=== PATIENT | male | born 1995 | race Caucasian/White ===

== ENCOUNTER → 2017-08-09 | Day surgery (SDC) | payer BC ==
[~2017-08-09] VITALS: Ht 175.3 cm; Wt 74.7 kg
[~2017-08-09] MED LIST: AMPH30CA3 PO; ATROPINE SULFATE 0.1 MG/ML 5ML SYR IV PRN; CALC500T83 PO; DiphenhydrAMINE HCL 50 MG/ML VIAL IV STA; EpHEDrine SULFATE INJ 50 MG/ML AMP IV PRN; FENTANYL CITRATE INJ 50 MCG/1 ML 2 ML VIAL ONE; FISH1CAP3 PO; LIDOCAINE HCL 2% 2 ML VIAL (20MG/ML) ONE; LORAZEPAM 2 MG/ML 1 ML VIAL IV STA; MAGN1TAB41 PO; METOCLOPRAMIDE HCL INJ 5 MG/ML 2 ML VIAL IV. STA; MIDAZOLAM HCL 1 MG/ML 2ML VIAL ONE; PHYT100T PO; PROPOFOL IV EMULSION 10 MG/ML 20 ML VIAL IV ONE; SODIUM CHLORIDE 0.9% 1000ML 1,000 ML IV STA; TRAZ100T29 PO
[2017-08-09 16:41] VITALS: Ht 175.3 cm; Wt 74.7 kg
--- NOTE | 2017-08-09 21:10 | Gastrointestinal Consultation ---
Gastrointestinal Consultation Date of Consultation: Aug 09, 2017 Attending Physician: Dr. David Layne Consulting Physician: DR Demetri Wilcox Reason for Consultation: Esophageal foreign body History of Present Illness Patient is a 22 year old male with CC of pills stuck. HPI Pt states no previous dysphagia problems. Ate solid food at 1000 no problem. Took two large magnesium tablets at 1430 and cannot swallow or handle saliva since. Tried to vomit but could not and saw some heme few hours ago. No abd nor chest pain. Hx of diarrhea alternating with constipation. Some GERD managed on prn tums. Takes trazadone and supplements NO previous colo or EGD per patient report. Past Medical/Surgical History depression Family History neg for dysphagia Social History Smoking Status: Current Some Day Smoker Allergies Coded Allergies: Lactose Intolerance (GI) (Verified Adverse Reaction, Intermediate, DIARRHEA, 08/09/17) Uncoded Allergies: SEAFOOD (Adverse Reaction, Intermediate, NAUSEA, 08/09/17) Current Medications Home Meds and Scripts Medications Dose Route/Sig Max Daily Dose Days Date Category Calcium Unknown Strength Tab 1 Tab PO DAILY 08/09/17 Reported Vitamin K (Phytonadione) Unknown Strength Tab 1 Tab PO DAILY 08/09/17 Reported Magnesium (Magnesium Oxide) Unknown Strength Tab 1 Tab PO DAILY 08/09/17 Reported Fish Oil + D3 (Fish Oil-Cholecalciferol) Unknown Strength Cap 1 Cap PO DAILY 08/09/17 Reported Adderall Xr 30MG (Amphetamine-Dextroamphetamine 30MG) 1 Cap Cap 30 Mg PO DAILY PRN 08/09/17 Reported Trazodone (Trazodone HCl) 100 Mg Tab 100 Mg PO HS 08/09/17 Reported Review of Systems see HPI. Otherwise 10 ROS negative Physical Exam Date Time Temp Pulse Resp B/P (MAP) Pulse Ox O2 Delivery O2 Flow Rate FiO2 08/09/17 20:31 92 08/09/17 16:41 36.7 72 18 120/67 95 Room Air General Appearance: WD/WN, no apparent distress Eyes: normal inspection, PERRL ENT: hearing grossly normal, pharynx normal Neck: supple, trachea midline Respiratory/Chest: lungs clear, no respiratory distress Cardiovascular: regular rate, rhythm, no edema, no murmur Abdomen: normal bowel sounds, non tender, soft, no organomegaly, no pulsatile mass Extremities: non-tender, no pedal edema Neurologic/Psych: county demonstrator II-XII nml as tested, alert, normal mood/affect, oriented x 3 Skin: normal color, warm/dry Impression Esophageal foreign body--Discussed EGD with removal and prn dilatation. Proc and risks explained which include but not limited to med reaction, bleeding, perforation, aspiration. Discussed increased risk of bleed, perforaiton, and aspiration with foreign body but only alternative chest surgery really not an alternative.
[2017-08-09 21:11] VITALS: O2SAT 98
--- NOTE | 2017-08-09 21:28 | EMERGENCY ROOM VISIT NOTE ---
History Report prepared by Owen: Tio Kimble Under the Supervision of: Dr. David Layne M.D. First contact with patient: 19:27 Chief Complaint: FOOD BOLUS Stated Complaint: PILL STUCK, CAN'T SWALLOW Nursing Triage Summary: Pt states, "So I was taking some supplements, I think Magnesium, I tried to swallow two without water and they got stuck. I tried to wash them down with some water and the water came back up. I can't swallow my saliva." Denies difficulty breathing. History of Present Illness The patient is a 22 year old male who presents to the Emergency Room with complaints of recurrent choking since 1429 today. He reports taking three supplements today: magnesium, fish oil, and a daily vitamin. He notes the supplements are stuck in his throat. He reports his heart is racing and he has a headache. He regularly takes supplements for working out and to keep his bones healthy. He states that he tried to drink water, though it would not go down. He states difficulty breathing when he tries to drink water. He states trying swallow his saliva, though it wont go down. He reports trying to vomit, though he was unsuccessful. He notes that while spitting out saliva he saw blood about three hours ago. The last time he ate was at 1000 today. He reports dry skin near the right side of his mouth since the start of winter. He has a history of PNA. He reports baseline diarrhea. He states his PCP tried to place him on a FODMAP's diet, though it was not helpful. Pt denies fevers, chills, neck pain, chest pain, nausea, abdominal pain, back pain, urinary symptoms, numbness, weakness, swelling, or rashes. Source of History: patient Onset: 1429 today Position: throat Quality: other (choking) Timing: other (recurrent) Associated Symptoms: + headache, + SOB (difficulty breathing), + diarrhea, No vomiting Note: He notes dry skin. Review of Systems See HPI for pertinent positives and negatives. A total of ten systems were reviewed and were otherwise negative. Past Medical & Surgical Medical Problems: (1) Bronchitis (2) Diarrhea (3) PNA (pneumonia) Family History No pertinent family history Social History Smoking Status: Current Some Day Smoker Alcohol Use: occasionally Marital Status: single Housing Status: lives with roommate Occupation Status: student Current/Historical Medications Scheduled Calcium (Calcium), 1 TAB PO DAILY Fish Oil-Cholecalciferol (Fish Oil + D3), 1 CAP PO DAILY Magnesium Oxide (Magnesium), 1 TAB PO DAILY Phytonadione (Vitamin K), 1 TAB PO DAILY Trazodone Hcl (Trazodone), 100 MG PO HS Scheduled PRN Amphetamine-Dextroamphetamine 30MG (Adderall Xr 30MG), 30 MG PO DAILY PRN for LONG STUDY DAYS Allergies Coded Allergies: Lactose Intolerance (GI) (Verified Adverse Reaction, Intermediate, DIARRHEA, 08/09/17) Uncoded Allergies: SEAFOOD (Adverse Reaction, Intermediate, NAUSEA, 08/09/17) Physical Exam Vital Signs Date Time Temp Pulse Resp B/P (MAP) Pulse Ox O2 Delivery O2 Flow Rate FiO2 08/09/17 21:11 73 20 105/61 98 Room Air 08/09/17 20:31 92 08/09/17 16:41 36.7 72 18 120/67 95 Room Air Physical Exam GENERAL: Awake, alert, uncomfortable-appearing, in no distress. Actively spitting up his saliva. HENT: Normocephalic, atraumatic. Posterior oropharynx shows redness and irritation. EYES: Normal conjunctiva. Sclera non-icteric. NECK: Supple. No nuchal rigidity. FROM. No masses. RESPIRATORY: Clear to auscultation. No wheezes. CARDIAC: Normal rate. Normal rhythm. No murmurs. No rubs. Extremities warm and well perfused. Pulses equal. No JVD. GI: Soft, non-distended. No tenderness to palpation. No rebound or guarding. No masses. RECTAL: Deferred. MUSCULOSKELETAL: Atraumatic. Chest examination reveals no tenderness. The back is symmetrical on inspection without obvious abnormality. There is no CVA tenderness to palpation. No joint edema. LOWER EXTREMITIES: Calves are equal size bilaterally and non-tender. No edema. No discoloration. NEURO: Normal sensorium. No sensory or motor deficits noted. SKIN: No rash or jaundice noted. Medical Decision & Procedures Medications Administered Medications (Trade) Dose Ordered Sig/Maryam Route Start Time Stop Time Status Last Admin Dose Admin Sodium Chloride 1,000 ml @ 999 mls/hr Q1H1M STAT IV 08/09/17 19:37 08/09/17 20:37 DC 2/16/18 20:12 999 MLS/HR Lorazepam (Ativan Inj) 0.5 mg NOW STAT IV 08/09/17 19:37 08/09/17 19:39 DC 08/09/17 20:11 0.5 MG Metoclopramide HCl (Reglan Inj) 10 mg NOW STAT IV. 08/09/17 19:37 08/09/17 19:39 DC 08/09/17 20:12 10 MG Diphenhydramine HCl (Benadryl Inj) 12.5 mg NOW STAT IV 08/09/17 19:37 08/09/17 19:39 DC 08/09/17 20:12 12.5 MG ED Course 1928: The patient was evaluated in room B12B. A complete history and physical exam was performed. 1936: Ordered Benadryl 12.5 mg IV, Reglan 10 mg IV, Ativan 0.5 mg IV, and Sodium Chloride 1,000 ml @ 999 mls/hr IV 1956: I spoke with Dr. Wilcox [facility]. We discussed the patient 's case. The patient will be further evaluated. 2001: I reassessed the patient at this time. I updated the patient. 2022: I reassessed the patient at this time. The patient is unchanged. 2104: The patient has been taken to endoscopy for further treatment. Medical Decision Triage Nursing notes reviewed. The patient's presentation and history were concerning for possible foreign body impaction of the esophagus. Etiologies such as foreign body impaction, pill esophagitis, esophageal rupture , dysphagia, as well as others were entertained. The patient was evaluated. He was tolerating his own saliva. His airway was patent. His lungs were clear. The remainder of his physical examination was unremarkable. He was given a dose of IV normal saline, IV Ativan, IV Reglan and IV Benadryl. On repeat Assessment he was more relaxed but still had the foreign body sensation present. Gastroenterology, Dr. Wilcox was consulted. The case was discussed. He was evaluated in the Emergency Room and it was determined that endoscopy would be necessary. The patient was taken to the OR for endoscopy and further management. Medication Reconcilliation Current Medication List: was personally reviewed by ri Blood Pressure Screening Patient's blood pressure: Normal blood pressure Consults Time Called: 1939 Consulting Physician: Dr. Wilcox [facility] Returned Call: [address] Wilcox, [facility]. We discussed the patient's case. The patient will be further evaluated. Impression Primary Impression: Impacted esophageal foreign body Scribe Attestation The scribe's documentation has been prepared under my direction and personally reviewed by me in its entirety. I confirm that the note above accurately reflects all work, treatment, procedures, and medical decision making performed by me. Departure Information Dispostion Other (further management by gastroenterology.) Referrals No Doctor, Assigned (PCP) Patient Instructions My [facility]
--- NOTE | 2017-08-09 22:35 | [facility] Post Operative Brief Note ---
Immediate Operative Summary Operative Date Aug 09, 2017. Pre-Operative Diagnosis Esophageal foreign body Post-Operative Diagnosis Esophageal foreign body Procedure(s) Performed Esophagogastroduodenoscopy foreign body removal Surgeon Dr. Wilcox Studio Designer Surgeon(s) None Estimated Blood Loss None Findings Consistent with Post-Op Diagnosis Specimens none Anesthesia Type General
--- NOTE | 2017-08-09 22:52 | GI REPORT ---
Procedure Date: 08/09/2017 9:23 PM Procedure: Upper GI endoscopy Indications: Foreign body in the esophagus Medicines: General Anesthesia Complications: No immediate complications. Estimated blood loss: None. Estimated Blood Loss: Estimated blood loss: none. Procedure: Pre-Anesthesia Assessment: - Prior to the procedure, a History and Physical was performed, and patient medications and allergies were reviewed. The patient is competent. The risks and benefits of the procedure and the sedation options and risks were discussed with the patient. All questions were answered and informed consent was obtained. Patient identification and proposed procedure were verified by the physician, the nurse and the anesthesiologist in the procedure room. Mental Status Examination: alert and oriented. Airway Examination: normal oropharyngeal airway and neck mobility. Respiratory Examination: clear to auscultation. CV Examination: normal. Prophylactic Antibiotics: The patient does not require prophylactic antibiotics. Prior Anticoagulants: The patient has taken no previous anticoagulant or antiplatelet agents. After reviewing the risks and benefits, the patient was deemed in satisfactory condition to undergo the procedure. The anesthesia plan was to use general anesthesia. Immediately prior to administration of medications, the patient was re-assessed for adequacy to receive sedatives. The heart rate, respiratory rate, oxygen saturations, blood pressure, adequacy of pulmonary ventilation, and response to care were monitored throughout the procedure. The physical status of the patient was re-assessed after the procedure. After obtaining informed consent, the endoscope was passed under direct vision. Throughout the procedure, the patient's blood pressure, pulse, and oxygen saturations were monitored continuously. The Scope was introduced through the mouth, and advanced to the second part of duodenum. The upper GI endoscopy was performed with moderate difficulty due to presence of foreign body. Successful completion of the procedure was aided by performing the maneuvers documented (below) in this report. The patient tolerated the procedure well. Procedure and risks explained to patient which include but not limited to medication reaction, bleeding, perforation, aspiration , and missed lesions. Judicious gas insufflation was used and gas removal done on the way out. The lumen was always visualized when advancing the scope. Prep was good. Washes and suctioning used as needed to get good visualization of the mucosa. Retroflexion to look at the fundus and cardia of the stomach and GE junction was done. Findings: Two large white pills were found in the proximal esophagus. The alligator forceps was used to break up the 2 wedged pills until fragments small enough for pills to go single file with gentle pressure into the stomach. Estimated blood loss: none. Non-severe esophagitis was found in the upper esophagus where pills were characterized by erythema and edema. No evidence of perforation The Z-line was regular and was found 45 cm from the incisors. The stomach was normal mucosa but dissolved pill obscurred portion of the fundus of the stomach. The examined duodenum was normal. The exam was otherwise without abnormality. Impression: - Two large white pills were found in the esophagus. - Non-severe non-reflux esophagitis. - Z-line regular, 45 cm from the incisors. - Normal stomach. - Normal examined duodenum. - The examination was otherwise normal. - No specimens collected. Recommendation: - Discharge patient to home (ambulatory). - Take pills one at a time with water, making sure pill goes down before next one is taken. Demetri Wilcox M.D. Demetri Wilcox MD 08/09/2017 10:51:35 PM This report has been signed electronically. Note Initiated On: 08/09/2017 9:23 PM I attest to the content of the Intraoperative Record and orders documented therein, exceptions below
--- NOTE | 2017-08-09 23:02 | Progress Note ---
Progress Note Date of Service Aug 09, 2017. Progress Note Pt awake post EGD. No abd or chest complaints. Mother Dale at [phone] called in about patient. Patient oked that I speak with her so told her about procedure.
--- NOTE | 2017-08-09 23:06 | Discharge Instructions ---
Endoscopy Patient Instructions Date / Procedure(s) Performed Aug 09, 2017. EGD (with pills removed from esophagus. ) Allergy Information Coded Allergies: Lactose Intolerance (GI) (Verified Adverse Reaction, Intermediate, DIARRHEA, 08/09/17) Uncoded Allergies: SEAFOOD (Adverse Reaction, Intermediate, NAUSEA, 08/09/17) Discharge Date / Findings Aug 09, 2017. Pills lodged in esophagus were removed. Medication Instructions No new meds Continue same home meds. Provider Instructions Activity Restrictions - No exercising or heavy lifting for 24 hours. - Do not drink alcohol the day of the procedure. - Do not drive a car or operate machinery until the day after the procedure. - Do not make any important decisions or sign important papers in 24 hours after the procedure. Following Day: - Return to full activity which may include returning to work/school. Diet Start your diet with liquids and light foods (jello, soup, juice, toast). Then eat your usual diet if not nauseated. Treatment For Common After Affects For mild abdominal pain, bloating, or excessive gas: - Rest - Eat lightly - Lie on right side Follow-Up Information Follow-up as needed with DR Wilcox at [facility] at [facility] [phone] Anesthesia Information What You Should Know You have had a procedure that required some medicine to reduce anxiety and discomfort. This treatment is called moderate sedation. After receiving the treatment, you may be sleepy, but you will be able to breathe on your own. The effects of the treatment may last for several hours. Follow these instructions along with Activity/Diet recommendations noted above: * Do NOT do anything where dizziness or clumsiness would be dangerous. * Rest quietly at home today, then you can be up and about tomorrow. * Have a responsible person stay with you the rest of today. * You may have had an I.V. today. If so, you may take the dressing off later today. Recommendations Take only one pill at a time and swallow water in between pills. Do not take next pill until previous one has traveled the esophagus. Call your doctor if: * Trouble breathing * Continuous vomiting for more than 24 hours * Temperature above 101 degrees * Severe abdominal pain or chest pain or bloating * Pain not relieved by pain medicine ordered * There is increased drainage or redness from any incision * A large amount of rectal bleeding greater than 2-3 tablespoons. (If you had a polyp/s removed or have hemorrhoids, a small amount of blood - from the rectum is to be expected.) * You have any unanswered questions or concerns. IN THE EVENT OF A SERIOUS EMERGENCY, GO TO THE NEAREST EMERGENCY ROOM Your discharge instructions were prepared by provider Demetri Wilcox. Patient Instructions Signature Page Guillaume Ramirez Patient (or Guardian) Signature/Date: I have read and understand the instructions given to me by my caregivers. Caregiver/RN/Doctor Signature/Date: The above-named patient and/or guardian has received patient instructions on this date. + Original Patient Signature Page (only) stays with chart. Please make copy for patient.
[2017-08-09 23:23] VITALS: BP 99/61; PULSE 59; TEMP 36.6; O2SAT 96
[2017-08-10] VITALS: BP 116/76; PULSE 88; TEMP 36.2; O2SAT 100
== END | disposition home or self-care (01) ==
LOC: C.EDB 16:39 → C.ACU 21:00 → C.EDB 21:26
PROVIDERS: ATTEND Internal Medicine Gastroenterology
DX: T18.198A Other foreign object in esophagus causing other injury, initial encounter (principal); X58.XXXA Exposure to other specified factors, initial encounter; K20.9 Esophagitis, unspecified; E73.9 Lactose intolerance, unspecified; F17.200 Nicotine dependence, unspecified, uncomplicated; Z91.013 Allergy to seafood; Z87.01 Personal history of pneumonia (recurrent)

== ENCOUNTER 2019-06-12 00:02 | Inpatient (IN) ==
[2019-06-12] MEDS ORDERED: ONDANSETRON INJ 2 MG/ML 2 ML VIAL ONE ×2 (00:18→01:05)
[2019-06-12] MEDS ORDERED: LORazepam 2 MG/4 ML VIAL ONE (00:19)
[2019-06-12 00:37] LABS: Basophils # (auto) 0.02 K/uL (0-0.2); Basophils % (auto) 0.2 %; Eosinophils # (auto) 0.31 K/uL (0-0.5); Eosinophils % (auto) 3.1 %; Hematocrit (blood only) 40.9 % (42-52); Hemoglobin 14.6 g/dL (14.0-18.0); Immature Granulocytes # (auto) 0.01 K/uL (0.00-0.02); Immature Granulocytes % (auto) 0.1 %; Lymphocytes # (auto) 4.78 K/uL (1.2-3.4); Lymphocytes % (auto) 48.3 %; Mean Corpuscular Hemoglobin 32.3 pg (25-34); Mean Corpuscular Hgb Conc 35.7 g/dL (32-36); Mean Corpuscular Volume 90.5 fL (80-100); Mean Platelet Volume 10.3 fL (7.4-10.4); Monocytes # (auto) 0.59 K/uL (0.11-0.59); Neutrophils # (auto) 4.19 K/uL (1.4-6.5); Neutrophils % (auto) 42.3 %; Platelet Count 231 K/uL (130-400); RDW Coefficient of Variation 11.9 % (11.5-14.5); RDW Standard Deviation 39.5 fL (36.4-46.3); Red Blood Count 4.52 M/uL (4.7-6.1)
[2019-06-12] MEDS ORDERED: IOVERSOL 100ml IV PRN (00:49)
[2019-06-12 01:10] LABS: Albumin Level 4.6 gm/dl (3.4-5.0); BUN Creatinine Ratio 12.9 (10-20); Calcium 8.4 mg/dl (8.5-10.1); Creatinine Clr Calc Pharmacy 86.2 ml/min; Est GFR (African American) 89.8; Est GFR (Non-African American) 77.5; Potassium 2.7 mmol/L (3.5-5.1)
[2019-06-12 01:20] LABS: Albumin Globulin Ratio 1.3 (0.9-2); Bilirubin,Total 0.6 mg/dl (0.2-1); Globulin 3.5 gm/dl (2.5-4.0); Thyroid Stimulating Hormone 1.51 uIu/ml (0.300-4.500); Total Protein 8.1 gm/dl (6.4-8.2)
[2019-06-12 01:21] LABS: Acetaminophen < 2 ug/ml (10-30); Salicylate < 1.7 mg/dl (2.8-20)
[2019-06-12] MEDS ORDERED: POTASSIUM CHLORIDE 20 MEQ TABCR PO STA (04:00)
[2019-06-12 05:37] LABS: Appearance Urine Clear (Clear); Bilirubin Urine Negative (Negative); Blood Urine Negative (Negative); Color Urine Yellow; Glucose Urine UA Negative (Negative); Ketones Urine Negative (Negative); Leukocyte Esterase Urine Negative (Negative); Nitrite Urine Negative (Negative); Protein Urine Negative (Negative); Specific Gravity Urine 1.014 (1.000-1.030); Urobilinogen Urine Negative (Negative)
[2019-06-12 05:58] LABS: Amphetamines+Metham, Urine Neg (Neg); Barbiturates, Urine Neg (Neg); Benzodiazepine, Urine Neg (Neg); Cocaine, Urine Neg (Neg); MDMA (Ecstacy), Urine Neg (Neg); Methadone, Urine Neg (Neg); Opiate, Urine Neg (Neg); Phencyclidine, Urine Neg (Neg)
--- NOTE | 2019-06-12 07:07 | CT Scan Report ---
CT OF THE CHEST WITH IV CONTRAST CLINICAL HISTORY: Fall. COMPARISON STUDY: No previous studies for comparison. TECHNIQUE: Following IV administration of 92 mL of Optiray-320, helical axial images of the chest we re obtained. Sagittal and coronal reconstructions were viewed as well as maximal intensity projectio ns on an independent 3-D workstation. Automated exposure control was utilized for the study. A dose lowering technique was utilized adhering to the principles of ALARA. CT DOSE: 1819.08 mGy.cm FINDINGS: There is no evidence for traumatic injury to the thoracic aorta. The size the heart is nor mal. There is no pericardial effusion. No thoracic lymphadenopathy is present. No pneumothorax or pul monary contusion is present. There is no pleural effusion. No acute rib or thoracic spine fracture is noted. The abdomen and pelvis will be reported separately. IMPRESSION: No acute traumatic findings within the chest. ACT 112: Negative or not required by law. Electronically signed by: Sonu Solorzano M.D. 06/12/2019 7:06 AM
--- NOTE | 2019-06-12 07:09 | CT Scan Report ---
HEAD CT NONCONTRAST CT DOSE: HISTORY: fall 15 ft TECHNIQUE: Multiaxial CT images of the head were performed without the use of intravenous contrast. A utomated exposure control was utilized for this study. A dose lowering technique was utilized adheri ng to the principles of ALARA. Comparison: None. Findings: Small retention cyst within the right maxillary sinus. The calvarium and skull base are int act. The ventricles and sulci are within normal limits. There is no mass, hematoma, midline shift, or acute infarct. Impression: No acute intracranial abnormality. ACT 112: Negative or not required by law. Electronically signed by: Miki Henson M.D. 06/12/2019 7:07 AM
--- NOTE | 2019-06-12 07:12 | CT Scan Report ---
CT OF THE ABDOMEN AND PELVIS WITH CONTRAST CLINICAL HISTORY: Fall. COMPARISON STUDY: None. TECHNIQUE: Following IV administration of 92 mL of Optiray-320, axial images of the abdomen and pelvi s were obtained from the lung bases to the proximal femurs. Images were reviewed in the axial, sagitt al, and coronal planes. IV contrast was administered without complication. Automated exposure contro l was utilized for the study. A dose lowering technique was utilized adhering to the principles of A DULCE. FINDINGS: No hemoperitoneum or pneumoperitoneum is present. There is no evidence for traumatic injury to the liver, spleen, adrenal glands, kidneys or pancreas. Caliber and wall thickness of small and l arge bowel are normal. There is no free fluid. No lymphadenopathy is present. Major vasculature is pa tent. No acute lumbar spine or pelvic fracture is identified. IMPRESSION: No acute traumatic findings within the abdomen or pelvis. ACT 112: Negative or not required by law. Electronically signed by: Sonu Solorzano M.D. 06/12/2019 7:10 AM
--- NOTE | 2019-06-12 07:18 | CT Scan Report ---
CT SCAN OF THE CERVICAL SPINE CLINICAL HISTORY: Fall. Intoxication. COMPARISON STUDY: No priors. TECHNIQUE: CT scan of the cervical spine is performed from the skull base to the upper thoracic spine . Images are reviewed in the axial, sagittal, and coronal planes. IV contrast was not administered fo r this examination. A dose lowering technique was utilized adhering to the principles of ALARA. FINDINGS: Skeletal structures: The skeletal structures are well mineralized. There is no evidence of fracture o r subluxation involving the cervical spine. Vertebral body height and alignment are maintained. There is straightening of the cervical lordosis. The odontoid process and lateral masses are intact. The a tlantoaxial articulation is preserved. The spinous processes appear intact. Intervertebral discs: The disc spaces are well maintained. Central canal: Widely patent. Soft tissues: The prevertebral and paraspinous soft tissues are within normal limits. Calvarium: The visualized calvarium at the skull base appears intact. Brain parenchyma: Partially visualized brain parenchyma the skull base is within normal limits. Sinuses and mastoids: The visualized paranasal sinuses are clear. The mastoid air cells are well pneu matized. Lung apices: Clear as visualized. IMPRESSION: There is no evidence of fracture or subluxation involving the cervical spine. ACT 112: Negative or not required by law. Electronically signed by: Ry Judd M.D. 06/12/2019 7:17 AM
--- NOTE | 2019-06-12 11:48 | Emergency Department Note ---
ED Visit Note This patient was signed out to me at the change of shift by Dr. Patel pending mental health evaluation. Patient was medically cleared at 8 AM for psychiatric assessment. Upon my assessment the patient was sleeping awaiting for the mental health casework specialist. Patient is felt to warrant inpatient care due to suicidal ideation and multiple statements. Patient continues to endorse thoughts of suicide. He is denying an active plan at this time. Given the significance of the situation last evening and inability to trust a safety plan with this patient, patient has been referred for inpatient care. He is voluntary at this time and was accepted to [facility]. for admission. Please refer to previous documentation for further details of the history, physical and visit. . : Head trauma Qualifiers: Encounter type: initial encounter Qualified Code(s): S09.90XA - Unspecified injury of head, initial encounter Alcohol overdose Qualifiers: Encounter type: initial encounter Injury intent: intentional self-harm Qualified Code(s): T51.92XA - Toxic effect of unspecified alcohol, intentional self-harm, initial encounter
[2019-06-12] MEDS ORDERED: BISMUTH SUBSALICYLATE PER ML OMNICELL CHARGE PO PRN (13:04)
[2019-06-12] MEDS ORDERED: ALUMINUM/MAGNESIUM SUSP 30 ML UDC PO PRN (13:04)
[2019-06-12] MEDS ORDERED: MAGNESIUM HYDROXIDE SUSP 30 ML UDC PO PRN (13:04)
[2019-06-12] MEDS ORDERED: SODIUM CHLORIDE 0.65% NA SOLN 45 ML (OCEAN) PRN (13:04)
[2019-06-12] MEDS ORDERED: ACETAMINOPHEN 325 MG TAB PO PRN (13:04)
[2019-06-12] MEDS ORDERED: PANTOprazole 40 MG TAB PO STA (15:46)
--- NOTE | 2019-06-12 17:36 | Emergency Department Note ---
Entered by Indigo Renee acting as a scribe for Ara Patel DO History of Present Illness General Chief complaint: Mental Health Evaluation Stated complaint: Fall, Mental health Time Seen by Provider: 06/12/19 00:06 Source: patient, EMS and police History of Present Illness Provider complaint: fall and SI Onset (ago): hour(s) less than 1 Location: head Pain Consistency: + constant Exacerbated By: + movement Associated symptoms: + denies other symptoms The patient is a 24 y/o male who presents to the emergency department for evaluation of an episode of a fall followed by suicidal thoughts prior to arrival. The police state that the patient reported he was drinking a lot. They report that the patient broke in to [facility] and there are conflicting stories as to if he jumped off a wall 15 feet or fell into the basement of the [facility] building 15 feet after breaking a window. The patient states that he cannot remember anything and that he wants to . The nurse reports that the patient did throw up but maintained his own airway. The patient states that he drank enough alcohol to . The nurse reports that the patient noted some head and neck pain. The patient states he has tried to harm himself before with heroin but not recently. He reports he uses heroin, DMT, LSD, and that he has had a drug problem for years. He reports that he will OD in his room if discharged from here. The patient states he has been depressed for 4 years. The patient stated that he thought jumping from 15 feet would kill him. The patient denies abdominal pain. Home Medications Home Medications Medication Instructions Recorded Confirmed Type clonazepam 0.5 mg tablet 0.5 mg PO . NEEDED tab 04/20/19 06/12/19 History pantoprazole 40 mg PO BID #60 tab 04/22/19 06/12/19 Rx budesonide 1 mg/2 mL suspension 2 ml INH BID #60 ea 05/11/19 06/12/19 Rx for nebulization Allergies Allergy/AdvReac Type Severity Reaction Status Date / Time banana Allergy Intermediate THROAT Verified 06/12/19 00:34 SWELLS egg Allergy Mild Difficulty Verified 06/12/19 00:34 Swallowing peanut Allergy Mild "Peanut Verified 06/12/19 00:34 mix (cannot remember)" - can eat peanut butter pollen extracts Allergy Mild "Environmental Verified 06/12/19 00:34 allergy": ITCHY WATERY EYES, RUNNY NOSE shellfish derived Allergy Mild RED EYES, Verified 06/12/19 00:34 HOT FLUSH FEELING lactose AdvReac Intermediate DIARRHEA Verified 06/12/19 00:34 Past Med/Surg History Medical History Environmental allergies Eosinophilic esophagitis GERD (gastroesophageal reflux disease) Seasonal allergies Surgical History History of surgery on right wrist FRACTURED Hx of foot surgery REMOVAL OF OLD KATHRYN NAIL PIECE Hx of wisdom tooth extraction Social History Preferred Language: Armenian Communication Ability: Effective 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 and A total of 10 systems reviewed and were otherwise negative Physical Exam Vital Signs Vital Signs - 24 hr 06/12/19 00:10 06/12/19 00:20 06/12/19 00:21 Pulse Rate 104 H 107 H 107 H Pulse Rate [Finger] Pulse Rate from SpO2 Sensor 106 H 106 H Pulse Rhythm [Finger] Pulse Strength [Finger] Respiratory Rate 24 22 18 Respiratory Effort / Characteristics Respiratory Depth Respiratory Pattern Blood Pressure 125/80 143/100 H Blood Pressure [Right Arm] Blood Pressure Mean 95 107 Blood Pressure Mean [Right Arm] Blood Pressure Position [Right Arm] Pulse Oximetry 98 100 99 Oxygen Delivery Method Room Air Sepsis Recent Fever Within 48 Hours No Sepsis New/Unexplained Change in Mental Status No Sepsis Action Taken by Nursing No Action Required 06/12/19 00:42 06/12/19 00:45 06/12/19 00:46 Pulse Rate 84 92 H 94 H Pulse Rate [Finger] Pulse Rate from SpO2 Sensor 84 93 H 95 H Pulse Rhythm [Finger] Pulse Strength [Finger] Respiratory Rate 18 18 18 Respiratory Effort / Characteristics Respiratory Depth Respiratory Pattern Blood Pressure 112/53 L 76/57 L 85/59 L Blood Pressure [Right Arm] Blood Pressure Mean 68 60 79 Blood Pressure Mean [Right Arm] Blood Pressure Position [Right Arm] Pulse Oximetry 94 71 L 100 Oxygen Delivery Method Sepsis Recent Fever Within 48 Hours Sepsis New/Unexplained Change in Mental Status Sepsis Action Taken by Nursing 06/12/19 00:48 06/12/19 01:00 06/12/19 01:15 Pulse Rate 98 H 96 H 99 H Pulse Rate [Finger] Pulse Rate from SpO2 Sensor 98 H 99 H 97 H Pulse Rhythm [Finger] Pulse Strength [Finger] Respiratory Rate 18 19 18 Respiratory Effort / Characteristics Respiratory Depth Respiratory Pattern Blood Pressure 96/68 L 107/58 L 102/56 L Blood Pressure [Right Arm] Blood Pressure Mean 73 71 71 Blood Pressure Mean [Right Arm] Blood Pressure Position [Right Arm] Pulse Oximetry 100 97 94 Oxygen Delivery Method Sepsis Recent Fever Within 48 Hours Sepsis New/Unexplained Change in Mental Status Sepsis Action Taken by Nursing 06/12/19 01:25 06/12/19 01:30 06/12/19 01:31 Pulse Rate 96 H 87 72 Pulse Rate [Finger] Pulse Rate from SpO2 Sensor 97 H 87 77 Pulse Rhythm [Finger] Pulse Strength [Finger] Respiratory Rate 18 18 15 Respiratory Effort / Characteristics Respiratory Depth Respiratory Pattern Blood Pressure 100/57 L 101/53 L Blood Pressure [Right Arm] Blood Pressure Mean 74 67 Blood Pressure Mean [Right Arm] Blood Pressure Position [Right Arm] Pulse Oximetry 99 100 98 Oxygen Delivery Method Sepsis Recent Fever Within 48 Hours Sepsis New/Unexplained Change in Mental Status Sepsis Action Taken by Nursing 06/12/19 01:45 06/12/19 02:00 06/12/19 02:15 Pulse Rate 88 78 83 Pulse Rate [Finger] Pulse Rate from SpO2 Sensor 78 83 Pulse Rhythm [Finger] Pulse Strength [Finger] Respiratory Rate 16 18 16 Respiratory Effort / Characteristics Respiratory Depth Respiratory Pattern Blood Pressure 93/62 L 105/57 L 105/54 L Blood Pressure [Right Arm] Blood Pressure Mean 75 76 69 Blood Pressure Mean [Right Arm] Blood Pressure Position [Right Arm] Pulse Oximetry 98 97 93 Oxygen Delivery Method Sepsis Recent Fever Within 48 Hours Sepsis New/Unexplained Change in Mental Status Sepsis Action Taken by Nursing 06/12/19 02:30 06/12/19 03:32 06/12/19 04:54 Pulse Rate 89 Pulse Rate [Finger] 120 H 109 H Pulse Rate from SpO2 Sensor 92 H Pulse Rhythm [Finger] Regular Regular Pulse Strength [Finger] Normal Normal Respiratory Rate 16 16 21 Respiratory Effort / Characteristics Non-Labored Spontaneous Non-Labored Spontaneous Respiratory Depth Normal Normal Respiratory Pattern Regular Regular Blood Pressure 104/59 L Blood Pressure [Right Arm] 91/56 L 118/73 Blood Pressure Mean 69 Blood Pressure Mean [Right Arm] 67 88 Blood Pressure Position [Right Arm] Lying Lying Pulse Oximetry 99 100 98 Oxygen Delivery Method Room Air Room Air Sepsis Recent Fever Within 48 Hours Sepsis New/Unexplained Change in Mental Status Sepsis Action Taken by Nursing 06/12/19 07:36 06/12/19 11:43 Pulse Rate Pulse Rate [Finger] 88 98 H Pulse Rate from SpO2 Sensor Pulse Rhythm [Finger] Pulse Strength [Finger] Respiratory Rate 16 16 Respiratory Effort / Characteristics Non-Labored Spontaneous Respiratory Depth Normal Respiratory Pattern Blood Pressure Blood Pressure [Right Arm] 115/54 L 103/64 Blood Pressure Mean Blood Pressure Mean [Right Arm] 74 77 Blood Pressure Position [Right Arm] Pulse Oximetry 96 95 Oxygen Delivery Method Room Air Sepsis Recent Fever Within 48 Hours Sepsis New/Unexplained Change in Mental Status Sepsis Action Taken by Nursing General: Smells of alcohol, is combative at times, no recollection of the events. HEENT: Head - normocephalic and atraumatic. Pupils are equal, round, and are 4mm, sluggishly reactive to light. Extraocular eye muscles are intact and sclera are anicteric. Ears - bilaterally patent canals with no evidence of hemotympanum. Nose - moist nasal mucosa without evidence of trauma or discharge. Mouth - moist buccal mucosa with no trauma to the teeth or signs of malocclusion. Neck: The cervical collar was temporarily removed while in-line stabilization was maintained. The neck is supple and there is no pain to palpation over the posterior cervical spine and no obvious step-offs or deformities. There is no JVD or tracheal deviation. Chest: There are no signs of deformities, contusions or abrasions to the chest wall. There is no obvious crepitus or paradoxical chest rise. Heart: Regular, rate, and rhythm. There is a normal S1 and S2 with no murmurs, clicks, or gallops appreciated. Lungs: Clear to auscultation bilaterally with no wheezes, rales, or rhonchi. Abdomen: Soft, completely nontender, nondistended, with good bowel sounds. There is no sign of trauma such as contusions, abrasions or penetrations. There are no palpable pulsatile masses or hepatosplenomegaly. There is no guarding, rigidity, or rebound noted. Pelvis: Stable to rock and compression. Extremities: No obvious deformities or edema. There are easily palpable per ipheral pulses. Abrasions to both forearms. Neuro: The patient is awake and alert and easily able to follow commands. Muscle strength is 5 out of 5 in all 4 extremities. The patient does have some r epetitive statements. He has no recollection of the events. Back: The entire thoracic, lumbar, and sacral spine were palpated. There are no obvious step-offs or deformities noted. There are no obvious signs of trauma such as contusions abrasions penetrations noted to the back. Course Course 0010: Past medical records reviewed. The patient was evaluated in room A01. A complete history and physical exam was performed. An IV lock was initiated and labs were drawn as above. An order was placed for continuous cardiac mo nitoring. The patient was normal sinus rhythm at a rate of 96. 0019: The patient was having intermittent episodes of dry heaving and had difficulty remaining still or following directions. I ordered Ativan 1mg IV, and Zofran 4 mg IV. The patient will go for CT scan of the brain, cervical spine, chest, abdomen/pelvis 0047: The patient was reported to be holding his breath and trying to take the oxygen off. O2 sats were reaching 70%. He got a second mg of IV Ativan in CT scan. A nonrebreather was placed upon return to the department. I reevaluated the patient. He was vomiting. The patient was slightly hypotensive and was given a 500 cc bolus of normal saline solution. 0106: [employer] police state a witness reported the patient climbed onto a railing and fell 15 feet into the bottom of a stairwell, then broke out the basement window of the [place] [facility] and crawled through it. He continues to vomit so he will receive another 4mg of Zofran. 0124: I checked on the patient again. The patients blood pressure has improved to 100/57. The patient is resting comfortably. Nursing staff then notified me that the patient's blood pressure continued to improve and he was much more relaxed and had no further dry heaving or vomiting. 0242: I checked on the patient, he is sleeping with stable vital, they will roll him on his side and leave the collar in place. 0320: The patient is awake. He removed the c-collar himself. We reviewed a few of the results. He continues to make multiple suicidal statements. I am concerned for his safety in that room so he will now be a 1 to 1. 0400: The patient was noted to have a low potassium level. I ordered Klor-Con M20 40 meq PO. 0517: I checked on the patient again. He will be medically cleared at 8am for psychiatric evaluation. He has a past medical history of anxiety, bulimia, and GERD. He denies any drug use since early February because he is preparing to take a drug screening test for a new job. He remains a 1 on . 0630: The case was signed out to Dr. Owens at change of shift. Administered Medications Ioversol (Optiray 320 100ml) 92 ml IV ONCE PRN PRN Reason: Interaction Checking Stop: 06/16/19 00:48 Last Admin: 06/12/19 00:49 Dose: 92 ml Documented by: [id number] Discontinued Medications Lorazepam (Ativan) Confirm Administered Dose 2 mg .ROUTE .STK-MED ONE Stop: 06/12/19 00:20 Last Increment: 06/12/19 00:30 Dose: 1 mg Documented by: [id number] Increment: 06/12/19 00:23 Dose: 1 mg Documented by: [id number] Ondansetron HCl (Zofran) Confirm Administered Dose 4 mg .ROUTE .STK-MED ONE Stop: 06/12/19 00:19 Last Admin: 06/12/19 00:23 Dose: 4 mg Documented by: [id number] Ondansetron HCl (Zofran) Confirm Administered Dose 4 mg .ROUTE .STK-MED ONE Stop: 06/12/19 01:06 Last Admin: 06/12/19 01:07 Dose: 4 mg Documented by: [id number] Pantoprazole Sodium (Protonix) 40 mg PO NOW STA Stop: 06/12/19 15:47 Last Admin: 06/12/19 16:18 Dose: 40 mg Documented by: [id number] Potassium Chloride (Klor-Con M20) 40 meq PO NOW STA Stop: 06/12/19 04:01 Last Admin: 06/12/19 04:09 Dose: 40 meq Documented by: [id number] Medical Decision Making Differential Diagnosis Differential diagnosis: alcohol intoxication, closed head injury, skull fracture, intracranial trauma, C-spine injury, chest trauma, intraabdominal trauma, drug abuse, suicide attempt. Medical Records Attestation: I reviewed the patient's medical records. Home Medications Current Medication List: was personally reviewed by me Laboratory Data Attestation: I reviewed the patient's lab results. Result diagrams: 06/12/19 00:24 06/12/19 00:24 Lab Results 06/12/19 06/12/19 06/12/19 Range/Units 00:24 00:24 00:24 WBC 9.90 (4.8-10.8) K/uL RBC 4.52 L (4.7-6.1) M/uL Hgb 14.6 (14.0-18.0) g/dL Hct 40.9 L (42-52) % MCV 90.5 (80-100) fL MCH 32.3 (25-34) pg MCHC 35.7 (32-36) g/dL RDW Std Deviation 39.5 (36.4-46.3) fL RDW Coeff of Susan 11.9 (11.5-14.5) % Plt Count 231 (130-400) K/uL MPV 10.3 (7.4-10.4) fL Immature Gran % (Auto) 0.1 % Neut % (Auto) 42.3 % Lymph % (Auto) 48.3 % [place] % (Auto) 6.0 % Eos % (Auto) 3.1 % Baso % (Auto) 0.2 % Immature Gran # (Auto) 0.01 (0.00-0.02) K/uL Neut # (Auto) 4.19 (1.4-6.5) K/uL Lymph # (Auto) 4.78 H (1.2-3.4) K/uL [place]ord # (Auto) 0.59 (0.11-0.59) K/uL Eos # (Auto) 0.31 (0-0.5) K/uL Baso # (Auto) 0.02 (0-0.2) K/uL Sodium 141 (136-145) mmol/L Potassium 2.7 L (3.5-5.1) mmol/L Chloride 107 (98-107) mmol/L Carbon Dioxide 24 (21-32) mmol/L Anion Gap 10.0 (3-11) BUN 17 (7-18) mg/dl Creatinine 1.30 (0.6-1.4) mg/dl Est Cr Clr Drug Dosing 86.2 ml/min Est GFR ( Amer) 89.8 Est GFR (Non-Af Amer) 77.5 BUN/Creatinine Ratio 12.9 (10-20) Glucose 131 H (70-99) mg/dl Calcium 8.4 L (8.5-10.1) mg/dl Total Bilirubin 0.6 (0.2-1) mg/dl AST 20 (15-37) U/L ALT 18 (12-78) U/L Alkaline Phosphatase 112 (45-117) U/L Total Protein 8.1 (6.4-8.2) gm/dl Albumin 4.6 (3.4-5.0) gm/dl Globulin 3.5 (2.5-4.0) gm/dl Albumin/Globulin Ratio 1.3 (0.9-2) TSH 1.510 (0.300-4.500) uIu/ml Urine Color Urine Appearance (Clear) Urine pH (4.5-7.5) Ur Specific [place] (1.000-1.030) Urine Protein (Negative) Urine Glucose (UA) (Negative) Urine Ketones (Negative) Urine Blood (Negative) Urine Nitrite (Negative) Urine Bilirubin (Negative) Urine Urobilinogen (Negative) Ur Leukocyte Esterase (Negative) Salicylates < 1.7 L (2.8-20) mg/dl Urine Opiates Screen (Neg) Ur Methadone, Qual (Neg) Acetaminophen < 2 L (10-30) ug/ml Urine Barbiturates (Neg) Ur Phencyclidine (PCP) (Neg) U Amphetamin/Meth Scrn (Neg) MDMA (Ecstasy) Screen (Neg) U Benzodiazepines Scrn (Neg) Ur Cocaine Metabolite (Neg) U Marijuana (THC) Screen (Neg) Ethyl Alcohol mg/dL (0-3) mg/dl 06/12/19 06/12/19 06/12/19 Range/Units 00:52 05:25 05:25 WBC (4.8-10.8) K/uL RBC (4.7-6.1) M/uL Hgb (14.0-18.0) g/dL Hct (42-52) % MCV (80-100) fL MCH (25-34) pg MCHC (32-36) g/dL RDW Std Deviation (36.4-46.3) fL RDW Coeff of Susan (11.5-14.5) % Plt Count (130-400) K/uL MPV (7.4-10.4) fL Immature Gran % (Auto) % Neut % (Auto) % Lymph % (Auto) % [place] % (Auto) % Eos % (Auto) % Baso % (Auto) % Immature Gran # (Auto) (0.00-0.02) K/uL Neut # (Auto) (1.4-6.5) K/uL Lymph # (Auto) (1.2-3.4) K/uL [place] # (Auto) (0.11-0.59) K/uL Eos # (Auto) (0-0.5) K/uL Baso # (Auto) (0-0.2) K/uL Sodium (136-145) mmol/L Potassium (3.5-5.1) mmol/L Chloride (98-107) mmol/L Carbon Dioxide (21-32) mmol/L Anion Gap (3-11) BUN (7-18) mg/dl Creatinine (0.6-1.4) mg/dl Est Cr Clr Drug Dosing ml/min Est GFR ( Amer) Est GFR (Non-Af Amer) BUN/Creatinine Ratio (10-20) Glucose (70-99) mg/dl Calcium (8.5-10.1) mg/dl Total Bilirubin (0.2-1) mg/dl AST (15-37) U/L ALT (12-78) U/L Alkaline Phosphatase (45-117) U/L Total Protein (6.4-8.2) gm/dl Albumin (3.4-5.0) gm/dl Globulin (2.5-4.0) gm/dl Albumin/Globulin Ratio (0.9-2) TSH (0.300-4.500) uIu/ml Urine Color Yellow Urine Appearance Clear (Clear) Urine pH 8.0 H (4.5-7.5) Ur Specific [place] 1.014 (1.000-1.030) Urine Protein Negative (Negative) Urine Glucose (UA) Negative (Negative) Urine Ketones Negative (Negative) Urine Blood Negative (Negative) Urine Nitrite Negative (Negative) Urine Bilirubin Negative (Negative) Urine Urobilinogen Negative (Negative) Ur Leukocyte Esterase Negative (Negative) Salicylates (2.8-20) mg/dl Urine Opiates Screen Neg (Neg) Ur Methadone, Qual Neg (Neg) Acetaminophen (10-30) ug/ml Urine Barbiturates Neg (Neg) Ur Phencyclidine (PCP) Neg (Neg) U Amphetamin/Meth Scrn Neg (Neg) MDMA (Ecstasy) Screen Neg (Neg) U Benzodiazepines Scrn Neg (Neg) Ur Cocaine Metabolite Neg (Neg) U Marijuana (THC) Screen Neg (Neg) Ethyl Alcohol mg/dL 264.0 H (0-3) mg/dl Imaging Data Radiologist's Impression: Radiology results as stated below per my review and the radiologist's interpretation: Ct Abdomen and Pelvis with contrast: Findings: Lung bases: normal Distal heart and esophagus: Normal Liver: Normal Gallbladder: Normal Spleen: Normal Pancreas: Normal Adrenals: Normal Kidneys: Normal Bowel: Appendix is visualized and normal. Scattered colonic stool, Callber of the small bowel loops is normal. No inflammatory change or signs for obstruction . Small periumbilical outpouching is noted. Pelvis: No pelvic free fluid or mass. Bone: No lytic or blastic bony lesions Impression: 1. No acute intra-abdominal or pelvic findings Galileo Pool MD Ct Head Findings: no intracranial hemorrhage, abdominal intra- or extra- axial collections or parenchymal lesions are seen. The shape and configuration of the cortical sulci, basal cisterns and ventricles are within normal limits. The rueda-white differentiation is preserved. No evidence of mass effect, midline shift or edema. The osseous structures are unremarkable. Small right maxillary sinus mucous retention cyst. Impression: Normal non-contrast CT scan of the head. Galileo Pool MD CT C SPINE: Findings: With your body is anatomically aligned with normal height. C1 occipital condyle, C7-T1 appear to be normal. No loss of vertebral body height. Facets are normal. Posterior process are intact. Non-united tip of T1 vertebral body. Impression: 1. Anatomic alignment. 2. Negative for fracture. Galileo Pool MD. CT CHEST with contrast: Findings: Thoracic inlet, bilateral axilla are normal. Heart and mediastinum are normal. Limited images of the upper abdomen are unremarkable. Lungs: No ventricular endobronchial lesions. Lungs are clear. Bones: No lytic or blastic bony lesions. Coronal and sagittal reformatted images are not available. No gross fracture is identified. Upper abdomen: No abnormal finding. Impression: No acute findings. Galileo Pool MD. MDM Narrative The patient is a 24 y/o male who presents to the emergency department for teodoro luation of an episode of a fall followed by suicidal thoughts prior to arrival. The exact circumstances of the events this evening are unclear. It seems that this patient had a significant amount of alcohol intake and then fell from a railing at the [facility]. He then crawled into the building through a window according to bystanders. When police and EMS encountered the patient, he was agitated and had an altered mental status. He made multiple suicidal statements and there was concern that this may have been a suicide attempt. The patient had a complete trauma work-up here in the emergency department which was negative for any significant injuries. The patient had a blood alcohol level greater than 200 and he was found to be hypokalemic. The patient was given some time to sober up here in the emergency department and his potassium was replaced. Remained significantly concerned about the patient's safety as he may continued suicidal statements. He was placed on a 1-1 status in his room. He made no attempts to harm himself here in the emergency department. The patient describes a long history of drug abuse but once he was more sober stated that he had not used any drugs since February. Urine tox screen was negative. The patient's vital signs remained stable throughout the lengthy stay here in the emergency department. Observation note Observation began at and was necessary in order for the patient to become more sober so he could have a thorough mental health evaluation performed. Upon reevaluation, observation revealed that the patient was more sober and could be evaluated. The patient has a past medical history of anxiety, GERD and bulimia. 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 He describes alcohol and drug use at times. He had a complete review of systems and all 10 systems were reviewed and were negative except for the alcohol abuse and suicidal statements. Patient discharged from observation at 6:30 AM. Impression & Plan Alcohol overdose, Hypokalemia, Suicidal ideation, Fall Discharge Plan Visit Data *Final* Discharge Date/Time: 06/12/19 12:00 Chief Complaint: Mental Health Evaluation Stated Complaint: Fall, Mental health ED Provider: Mili Owens Discharge Problem: Alcohol overdose, Hypokalemia, Suicidal ideation, Fall Patient Disposition: Admitted As Inpatient Discharge Instructions Interventions: ED Discharge Assessment Last Done: 06/12/19 12:00 Discharge Problem: Alcohol overdose Qualifiers: Encounter type: initial encounter Injury intent: intentional self-harm Qualified Code(s): T51.92XA - Toxic effect of unspecified alcohol, intentional self-harm, initial encounter Fall Qualifiers: Encounter type: initial encounter Qualified Code(s): W19.XXXA - Unspecified fall, initial encounter The scribe's documentation has been prepared under my direction and personally reviewed by me in its entirety. I confirm that the note above accurately reflects all work, treatment, procedures, and medical decision making performed by me.
--- NOTE | 2019-06-12 19:03 | History & Physical ---
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 Urine Appearance Urine pH Ur Specific [place] Urine Protein Urine Glucose (UA) Urine Ketones Urine Blood Urine Nitrite Urine Bilirubin Urine Urobilinogen Ur Leukocyte Esterase Salicylates < 1.7 L Urine Opiates Screen Ur Methadone, Qual Acetaminophen < 2 L Urine Barbiturates Ur Phencyclidine (PCP) U Amphetamin/Meth Scrn MDMA (Ecstasy) Screen U Benzodiazepines Scrn Ur Cocaine Metabolite U Marijuana (THC) Screen Ethyl Alcohol mg/dL 06/12/19 06/12/19 06/12/19 00:52 05:25 05:25 WBC RBC Hgb Hct MCV MCH MCHC RDW Std Deviation RDW Coeff of Susan Plt Count MPV Immature Gran % (Auto) Neut % (Auto) Lymph % (Auto) Owen % (Auto) Eos % (Auto) Baso % (Auto) Immature Gran # (Auto) Neut # (Auto) Lymph # (Auto) Owen # (Auto) Eos # (Auto) Baso # (Auto) Sodium Potassium Chloride Carbon Dioxide Anion Gap BUN Creatinine Est Cr Clr Drug Dosing Est GFR ( Amer) Est GFR (Non-Af Amer) BUN/Creatinine Ratio Glucose Calcium Total Bilirubin AST ALT Alkaline Phosphatase Total Protein Albumin Globulin Albumin/Globulin Ratio TSH Urine Color Yellow Urine Appearance Clear Urine pH 8.0 H Ur Specific [place] 1.014 Urine Protein Negative Urine Glucose (UA) Negative Urine Ketones Negative Urine Blood Negative Urine Nitrite Negative Urine Bilirubin Negative Urine Urobilinogen Negative Ur Leukocyte Esterase Negative Salicylates Urine Opiates Screen Neg Ur Methadone, Qual Neg Acetaminophen Urine Barbiturates Neg Ur Phencyclidine (PCP) Neg U Amphetamin/Meth Scrn Neg MDMA (Ecstasy) Screen Neg U Benzodiazepines Scrn Neg Ur Cocaine Metabolite Neg U Marijuana (THC) Screen Neg Ethyl Alcohol mg/dL 264.0 H Current Inpatient Medications Current Inpatient Medications: Current Inpatient Medications Acetaminophen (Tylenol) 650 mg PO Q4H PRN PRN Reason: Headache or Minor Fever Stop: 07/12/19 13:03 Al Hydrox/Mg Hydrox/Simethicone (Maalox) 30 ml PO Q4H PRN PRN Reason: GI Upset Stop: 07/12/19 13:03 Bismuth Subsalicylate (Kaopectate) 15 ml PO PRN PRN PRN Reason: Loose Stool Stop: 07/12/19 13:03 Hydroxyzine HCl (Vistaril) 50 mg PO HSZ PRN PRN Reason: Insomnia Stop: 07/12/19 13:03 Hydroxyzine HCl (Vistaril) 25 mg PO Q4H PRN PRN Reason: Anxiety Stop: 07/12/19 13:03 Influenza Virus Vaccine Quadrival (Flucelvax Quad Vaccine) 0.5 ml IM .ONCE ONE Stop: 06/12/19 18:01 Ioversol (Optiray 320 100ml) 92 ml IV ONCE PRN PRN Reason: Interaction Checking Stop: 06/16/19 00:48 Last Admin: 06/12/19 00:49 Dose: 92 ml Documented by: Magnesium Hydroxide (Milk Of Magnesia) 30 ml PO DAILY PRN PRN Reason: Constipation Stop: 07/12/19 13:03 Pantoprazole Sodium (Protonix) 40 mg PO BID REBECCA Stop: 07/12/19 20:59 Sodium Chloride ([place] Nasal) 1 - 2 sprays NA PRN PRN PRN Reason: Nasal Dryness/Congestion Stop: 07/12/19 13:03
[2019-06-12] MEDS ORDERED: NON-FORMULARY PATIENT'S OWN MED PO SCH (21:00)
[2019-06-12] MEDS: PANTOprazole 40 MG TAB PO SCH (21:03)
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
[2019-06-13] MEDS: PANTOprazole 40 MG TAB PO SCH (10:43)
== END 2019-06-13 12:15 | disposition home or self-care (01) | DRG 897 ==
LOC: ED 00:02 → 3S 12:00